=== PATIENT | female | born 1940 | race Caucasian/White ===

== ENCOUNTER → 2024-01-17 14:25 | Outpatient (BNVA) | payer MEDICARE, OTHER, SELFPAY | PROVIDERS: Family Provider Surgery; Visit Provider Nurse Practitioner | DX: M19.011 Primary osteoarthritis, right shoulder (principal); R29.898 Other symptoms and signs involving the musculoskeletal system | CPT/HCPCS: 73030; 99204 ==

== ENCOUNTER → 2024-01-26 15:19 | Outpatient (BNVA) | payer MEDICARE, OTHER, SELFPAY | PROVIDERS: Family Provider Surgery; Referring Provider Nurse Practitioner Family; Visit Provider Nurse Practitioner | DX: M25.562 Pain in left knee (principal) | CPT/HCPCS: 36415; 80053; 81001; 85025 ==

== ENCOUNTER → 2024-02-07 11:40 | Outpatient (BNVA) | payer MEDICARE, OTHER, SELFPAY | PROVIDERS: Family Provider Surgery; PCP Family Medicine; Visit Provider Family Medicine | DX: Z01.818 Encounter for other preprocedural examination (principal); I49.8 Other specified cardiac arrhythmias; I44.5 Left posterior fascicular block | CPT/HCPCS: 81003; 87086; 93005 ==

== ENCOUNTER 2024-02-14 13:00 | Outpatient (CLI) | payer MEDICARE, OTHER, SELFPAY ==
--- NOTE | 2024-02-14 13:30 | IR_ITS ---
WS: [id number] SHOULDER ARTHROGRAM RIGHT Fluoroscopic guided right shoulder arthrogram CLINICAL INFORMATION: right shoulder pain and weakness. COMPARISON: None. PROCEDURE: The procedure including risks, benefits and complications were discussed with the patient, who agreed to proceed. Using sterile technique, the patient was prepped and draped in the usual ster ile fashion. After 1% lidocaine injection using fluoroscopic guidance, a 22-gauge spinal needle was a dvanced into the glenohumeral joint. Approximately 13 ml of a solution containing 20 cc Omnipaque 240 and 5 cc ml 1% lidocaine was administered. No immediate complications. FLUOROSCOPY TIME: 1min [id number] # of spot films: 3 IR/IR arthrogram shoulderRT [id number] IMPRESSION: Uncomplicated fluoroscopic-guided right shoulder arthrogram. CT to follow.
[2024-02-14] MEDS: iohexol 240 mg/mL 50 mL Btl INTRA-ARTI (15:02)
== END 2024-02-14 13:01 | disposition home or self-care (01) ==
LOC: RAD 13:01
PROVIDERS: Family Provider Surgery; PCP Family Medicine; Visit Provider Nurse Practitioner
DX: M19.011 Primary osteoarthritis, right shoulder (principal); R29.898 Other symptoms and signs involving the musculoskeletal system; M17.12 Unilateral primary osteoarthritis, left knee; M85.88 Other specified disorders of bone density and structure, other site
CPT/HCPCS: 23350; 77002

== ENCOUNTER 2024-02-14 13:00 | Outpatient (CLI) | payer MEDICARE, OTHER, SELFPAY ==
--- NOTE | 2024-02-14 13:10 | CT_ITS ---
WS: [id number] CT RIGHT shoulder arthrogram TECHNIQUE: CT RIGHT shoulder arthrogram with coronal and sagittal reformatted images. CLINICAL INFORMATION: right shoulder pain and weakness. COMPARISON: None. DLP: 319.[address] scans at [facility] use at least one of these dose optimization techniques: automated e xposure control; mA and/or kV adjustment per patient size (includes targeted exams where dose is matc hed to clinical indication); or iterative reconstruction. FINDINGS: Advanced degenerative arthritis AC joint with narrowing of the subacromial space. High-grad e full-thickness tear of the supraspinatus with tendon retraction to the glenohumeral joint. Contrast extends into the subacromial subdeltoid bursa. Chronic thinning of the infraspinatus with horizontal partial-thickness split tear. Small tear at the infraspinatus insertion. Teres minor appears intact. Subscapularis tendon appears intact. Chronic appearing tear of the intra- articular biceps tendon with a tiny biceps tendon remnant in the bicipital groove. Advanced degenerat lori narrowing of the glenohumeral articulation. A few tiny noncalcified micronodules RIGHT lung. Partially visualized coronary calcification. Aortic calcification. Hypertrophic changes thoracic spine. CT/CT shoulder RT w con [id number] IMPRESSION: 1. Moderate to advanced degenerative arthritis AC joint with narrowing of the subacromial space. 2. High-grade full-thickness tear of the supraspinatus with retraction to the level of the glenohumeral joint. 3. Partial-thickness horizontal split tear involving the infraspinatus which a ppears intact distally with a small insertional tear. 4. Subscapularis and teres minor appear intact. 5. Chronic appearing tear of the biceps tendon with tiny biceps tendon remnant in the bicipital groove. 6. Tiny intra-articular biceps tendon. 7. Advanced degenerative narrowing of the glenohumeral articulation.
--- NOTE | 2024-02-14 14:00 | CT_ITS ---
WS: [id number] CT LEFT knee, noncontrast HISTORY: M17.12 - Unilateral primary osteoarthritis, left knee TECHNIQUE: Protocol for [facility] total knee replacement has been obtained. This includes axial imaging th rough the LEFT hip, LEFT knee and LEFT ankle. DLP: 870.19 mGy.cm COMPARISON: None available. Pelvis: Mild osteopenia. No acute fractures or displacements. Atherosclerotic plaque in the iliac art eries. LEFT knee: Mild to moderate tricompartment osteoarthritis. Marginal osteophytes. Degenerative air in the medial compartment. Chondrocalcinosis. LEFT ankle: Negative. CT/CT knee LT [facility] [id number] IMPRESSION: CT imaging provided for [facility] robotic total knee replacement.
== END 2024-02-14 13:01 | disposition home or self-care (01) ==
LOC: RAD 13:01
PROVIDERS: Family Provider Surgery; PCP Family Medicine; Visit Provider Nurse Practitioner
DX: Z01.818 Encounter for other preprocedural examination (principal); M17.12 Unilateral primary osteoarthritis, left knee; M25.762 Osteophyte, left knee; M75.121 Complete rotator cuff tear or rupture of right shoulder, not specified as traumatic
CPT/HCPCS: 73201; 73700

== ENCOUNTER → 2024-02-16 13:19 | Outpatient (BNVA) | payer MEDICARE, OTHER, SELFPAY | PROVIDERS: Family Provider Surgery; PCP Family Medicine; Visit Provider Nurse Practitioner | DX: M19.011 Primary osteoarthritis, right shoulder (principal); R29.898 Other symptoms and signs involving the musculoskeletal system; R03.0 Elevated blood-pressure reading, without diagnosis of hypertension | CPT/HCPCS: 99214 ==

== ENCOUNTER 2024-02-22 11:48 | Observation (INO) | payer MEDICARE, OTHER, SELFPAY ==
[2024-02-22] VITALS (13 sets, daily range): BP systolic 111–193; BP diastolic 58–98; PULSE 69–94; RESP 14–18; TEMP 36.4–36.7; O2SAT 94–97; BMI 27.3; BMI 29.7
[2024-02-22] MEDS: sodium chloride 0.9% 1,000 ML 30 ML IV (06:40)
[2024-02-22] MEDS: acetaminophen 1,000 MG/100 ML PIGGYBACK 400 MG IV ×3 (06:41→23:28)
[2024-02-22] MEDS: gabapentin 300 mg Capsule PO (06:43)
--- NOTE | 2024-02-22 06:59 | P.HPUD_ITS ---
Surgery/Procedure H&P Update DATE OF PROCEDURE: February 22, 2024 DATE H&P PERFORMED: 02/07/24 H&P UPDATE INFORMATION: I have reviewed H&P completed within last 30 days, I have examined patient prior to procedure, No changes to prior documentation and H&P is in [facility] EMR on date indicated PLANNED PROCEDURE: Operation Date: 02/22/24 07:55 Proposed Procedures p Tc Robot Total Knee Arthroplasty(Left) - Vy Archer MD Related Problem List Diagnoses (1) Primary osteoarthritis of left knee:
--- NOTE | 2024-02-22 07:15 | P.ANESASSM_ITS ---
Pre-Anesthetic Assessment Height/Weight: Height 1.52 m Weight 63.503 kg Temp Pulse Resp BP Pulse Ox O2 Del Method 97.8 F 69 16 193/98 94 Room Air 02/22/24 06:19 02/22/24 06:19 02/22/24 06:19 02/22/24 06:19 02/22/24 06:19 02/22/24 06:19 Operation Date: 02/22/24 07:55 Proposed Procedures p Tc Robot Total Knee Arthroplasty(Left) - Vy Archer MD Familial anesthetic complications: None Was Beta Clay taken within 24 hours: N/A Was Clonidine taken within 24 hours: N/A Last intake: Intake Last Liquid Date 02/21/24 Last Liquid Time 20:00 Last Solid Date 02/21/24 Last Solid Time 13:00 Social Tobacco and No alcohol Exam alert, oriented x 3, clear to auscultation bilaterally and regular rate & rhythm Airway Mallampati: Class I Dentition: false Pulmonary Chronic Obstructive Pulmonary Disease (O2 at night) GI Gastroesophageal Reflux Disease Musc/skel Lumbar surgery - patient educated probable conversion to general is spinal difficult to place or if poor density of block Anesthetic Plan ASA status: 3 Anesthesia: Regional (specify below) Risk of > 500 ml blood loss (7ml/kg in children): Yes, adequate IV access and fluids planned Medications/Allergies Home Medications Medication Instructions Recorded Confirmed Last Taken Type atorvastatin 20 mg tablet 20 mg PO DAILY 01/17/24 02/21/24 02/21/24 History omeprazole 20 mg capsule,delayed 20 mg PO DAILY 01/17/24 02/21/24 02/21/24 History release oxycodone-acetaminophen 5 mg-325 1 tab PO Q4H PRN Pain (Scale Score 01/17/24 02/21/24 02/21/24 History mg tablet 1-3) meloxicam 7.5 mg tablet 7.5 mg PO DAILY #90 tabs 01/18/24 02/21/24 02/20/24 Rx albuterol sulfate 90 mcg/actuation 2 puff inhalation Q4H PRN sob 02/07/24 02/21/24 02/21/24 History aerosol inhaler (Ventolin HFA) ramipril 5 mg capsule 5 mg PO DAILY 02/07/24 02/21/24 02/21/24 History solifenacin 5 mg tablet 5 mg PO DAILY 02/07/24 02/21/24 02/21/24 History standard walker #1 ea 02/16/24 02/16/24 Unknown Rx Allergies Allergy/AdvReac Type Severity Reaction Status Date / Time celecoxib [From Celebrex] Allergy Unknown Verified 02/22/24 06:00 [facility] Anesthesia Medical History Primary osteoarthritis of left knee Weakness of right shoulder Primary osteoarthritis, right shoulder Social History Smoking and tobacco/nicotine status: current every day tobacco/nicotine user Data Anesthesia Cardiac Studies: No Data to Display
--- NOTE | 2024-02-22 07:20 | ANES.PROC ---
Anesthesia Procedures Procedure/Date: 02/22/24 Nerve Block ^: Nerve Block 1: Main Anesthesia: spinal anesthesia block Time Out Performed: Yes Consent: requested by attending/covering physician, from patient, from other, risks and benefits reviewed and patient agrees to proceed Nerve block location: adductor canal (L) Anesthesia monitors applied: pulse oximetry, EKG and BP cuff Nerve block position: supine Anesthetic Used: ropivicaine 0.5% (30 ml) and with decadron (4 mg) Ultrasound used to: recognize landmarks Nerve Stimulator Used?: No Interscalene/Femoral BLK: 4 stimuplex 21 g needle used for position and inplane approach, visualize local anesthetic spread and no vascular puncture identified Injection: neg aspiration of heme Patient Tolerated Procedure: well Complications: none
[2024-02-22] MEDS: ceFAZolin 2,000 mg SDV 2000 MG IVP ×3 (08:18→23:27)
[2024-02-22] MEDS: tranexamic acid 1,000 mg/10mL SDV 1000 MG IV (08:45)
[2024-02-22] MEDS: BUPivacaine 0.5% INJ 30 mL INJECTION (09:17)
[2024-02-22] MEDS: ceFAZolin 1,000 mg SDV 2000 MG IRRIGATION (09:17)
[2024-02-22] MEDS: BUPivacaine liposome 13.3 mg/mL SDV 20 mL 266 MG INFILTRATI (09:17)
[2024-02-22] MEDS: vancomycin 1,000 MG SDV 1000 MG XX (09:18)
--- NOTE | 2024-02-22 11:48 | XR_ITS ---
WS: [id number] Exam: XR knee LT 3V* [id number] Date/Time of Exam: 02/22/2024 11:48 AM Reason For Exam: S/P LEFT TKA -- PACU images. LEFT total knee prosthesis in place in excellent position. Postoperative changes in the adjacent soft tissues. XR/XR knee LT 1-2V [id number] IMPRESSION: 1. LEFT total knee arthroplasty in excellent position.
--- NOTE | 2024-02-22 11:59 | PM.OP ---
Operative Report Date of procedure: February 22, 2024 Pre-op diagnosis: Severe degenerative osteoarthritis of the left knee with slight flexion contracture Post-op diagnosis: Severe degenerative osteoarthritis of the left knee with slight flexion contracture Post-op findings: Severe degenerative osteoarthritis of the left knee with slight flexion contracture and complete denudement of cartilage Procedure done: Left total knee arthroplasty with Tc guidance Implants: The [employer] total knee system with a size 3 triathlon beaded cruciate retaining femur left, a triathlon titanium tibial component size 3 beaded, a triathlon X3 tibial bearing CS insert size 3 X 9 mm and a beaded triathlon titanium asymmetric patella size 32 x 10 mm Specimens removed/disposition: Bone, disposed of Pathology: None Surgeon: Vy Archer MD Metal Sponge Making Machine Operator: Mandie Rodriguez Metal Sponge Making Machine Operator: Nurse practitioner, who services were required for exposure, retraction, and closure Anesthesia: General (Intubated secondary to multiple prior back surgeries, ASA 3) Estimated blood loss (mL): 250 Tourniquet time (min): 0 (Not utilized) IV fluids (mL): 1,500 Urine output (mL): 250 Complications: None Findings: Severe degenerative osteoarthritis with large osteophytes and sclerotic bone Condition: stable Disposition: PACU (Then discharged to floor under observation for postoperative rehabilitation and pain management) Brief History: This 84-year-old woman presented with complaints of left knee pain. She noted that she has pain if she overused her leg, and at night, she had locking of her knee if she held it in 1 position. She has been trying to keep it moving. She had the pain for couple years. She had a steroid injection without relief. She has stiffness and deep aching late at night and early in the morning, and after discussion, the patient wished to proceed with operative intervention in the form of left total knee arthroplasty. Consents were signed and questions were answered at that time. Procedure: The patient was brought to the operating theater, and after undergoing general intubated anesthesia secondary to multiple prior back surgeries, with supplemental adductor canal block, ASA 3, the left lower extremity was prepped with Dura-Prep and draped in usual fashion following placement of a tourniquet high on the leg. The tourniquet was not elevated throughout the case. The leg was then draped free.? A surgical pause was performed, and at the time of the surgical pause, we confirmed the site and side of surgery. Additionally, we confirmed the appropriate and timely administration of preoperative antibiotics, Ancef 2 g.? The availability of equipment was confirmed, and the patient's identity was verbalized as well. Following the surgical pause, an incision was made centering over the patella continuing proximally and distally as necessary to allow access to the knee joint. Dissection continued through skin and soft tissues using a scalpel. Hemostasis was obtained using electrocautery. The skin incision was followed by a median parapatellar arthrotomy. The leg was extended and the patella was able to be displaced laterally.? Appropriate arrays and markers were placed in appropriate position for use of the Tc.? Preoperative planning had been accomplished and was discussed in detail with the [facility] apprenticeship training representative.? Intraoperative mapping of the femur and tibia was accomplished after the arrays were placed.? Internal markers were also placed.? Once we had accomplished the Tc mapping, we began the appropriate resections for placement of the prosthesis.? The plan was for a cruciate retaining right total knee arthroplasty. Once appropriate mapping had been accomplished retraction was established using manual retraction by surgical technicians and also the Tc leg positioner and retractors.? The knee was evaluated.? There was significant osteoarthritic change as well as flexion contracture with valgus deformity.? Appropriate bone resection was accomplished using the Tc.? The femur was sized to a size 3.? Following femoral cuts, attention was directed to the tibia.? Osteophytes were removed prior to this portion of the procedure.? We had performed a medial release at the beginning of the procedure to allow for placement of the array.? Proximal tibia was evaluated, and it was felt that appropriate size for the tibia was a size 3.? Tray was noted to fit nicely with good coverage.? Rim fit was accomplished with the size 3. A trial reduction was accomplished after osteophytes have been removed as well as the medial and lateral menisci.? We had removed the anterior cruciate ligament at the beginning of the case and preserved the posterior cruciate ligament.? Trial reduction was accomplished with a size 3 femoral cruciate retaining component, a size 3 tibial tray and a size 3 CS tibial bearing insert which was 9 mm.? There was tightness in flexion in particular as well as in extension, and an additional 1.5 mm was removed from the proximal tibia. This allowed better balancing of the knee. Alignment was felt to be appropriate as well.? Trial components were removed after the femur had been drilled.? Prior to removal of the tibial tray which had been pinned in position with appropriate rotation as determined by the Tc plan, we broached the tibia.? Subsequently, the 4 drill holes were made for the prosthetic component.? All trial components were removed, and the wound was irrigated.? Plans were made for insertion of the prosthetic components.? Prior to this, the patella was manually prepared.? After resection of the articular surface with the jigging system, it was measured and measured a 32 mm patella.? We resected approximately 10 mm of patella.? Patellar height was restored with the patellar component. Once again, the wound was irrigated.? The Tritanium tibia was impacted into position.? The beaded femur was then impacted into position in a cementless fashion. The CS tibial insert was placed prior to placement of the femoral component. The patella was pressed into position with a patellar clamp.? Exparel was injected about the components deep and superficially.? The knee was then copiously irrigated with betadine and saline and suctioned dry. Attention was then directed to closure. Closure was accomplished with 0 Vicryl in the fascial tissues.? The suture line of 0 Vicryl was supplemented with strata fix, #1, with a running stitch from proximal to distal and a second running stitch from distal to proximal.? This was followed by Surgiflo and vancomycin powder.? Following this, a 2-0 Monocryl strata fix was used in the subcutaneous tissues, and the skin was closed with 3-0 Strata fix.? Care was taken to assure an excellent subcutaneous as well as skin closure.? A sterile dressing was then placed consisting of Dermabond Prineo, OpSite, ABD, sterile soft roll, and an Reji wrap including over the foot. The patient was returned the Recovery Room in a satisfactory condition. X-rays were obtained and reviewed there.? The patient will be discharged to the floor for postoperative rehabilitation and pain management. Related Problem List Diagnoses (1) Primary osteoarthritis of left knee:
--- NOTE | 2024-02-22 12:25 | ANE.PACU2 ---
Inpatient post-anesthesia follow up: Airway intact: Yes Vital signs: Temperature 97.7 F Pulse Rate 90 Respiratory Rate 17 Blood Pressure 125/58 Pulse Oximetry 97 Oxygen Delivery Me thod Nasal Cannula Oxygen Flow Rate 3 Fraction of Inspir ed Oxygen Hydration adequate: Yes Nausea and vomiting: No Pain level: 1 Mental status: Baseline
[2024-02-22] MEDS: tranexamic acid 1,000 MG/100 ML PREMIX 600 MG IV (16:35)
[2024-02-22] MEDS: iron polysaccharide complex 150 mg Capsule PO (16:36)
[2024-02-22] MEDS: chlorhexidine gluconate 0.12% Btl 473 mL 30 ML MUCOUS MEM (20:17)
[2024-02-23] VITALS (7 sets, daily range): BP systolic 110–153; BP diastolic 45–74; PULSE 62–91; RESP 16–22; TEMP 36.8–36.9; O2SAT 95–96
[2024-02-23 03:41] LABS: Hematocrit 31.8 % (36-47); Lymphocytes # 1.4 10^3/uL (0.8-4.8); Lymphocytes % 17.6 %; Mean Corpuscular Hemoglobin 30.3 pg (27-33); Mean Corpuscular Volume 91.9 fl (85-98); Mean Platelet Volume 9.3 fL (7.4-10.4); Monocytes # 0.9 10^3/uL (0.2-0.9); Monocytes % 11.2 %; Nucleated Red Blood Cells % 0 %; Platelet Count 204 10^3/cmm (157-399); Red Blood Count 3.46 10^6/uL (3.85-5.65); Red Cell Distribution Width 13.7 % (12.1-15.1); White Blood Count 8.03 10^3/uL (3.29-11.43)
[2024-02-23 04:06] LABS: Anion Gap 13.2 (5-19); Blood Urea Nitrogen 16 mg/dL (8-23); Carbon Dioxide 25 mmol/L (22-29); Chloride 105 mmol/L (98-107); Creatinine Clr Calc Pharmacy 46.9706; Glucose 125 mg/dL (65-115); Osmolality Calculated 291 mOsm/kg (285-295); Potassium 4.2 mmol/L (3.5-5.1); Sodium 139 mmol/L (136-145)
[2024-02-23] MEDS: acetaminophen 1,000 MG/100 ML PIGGYBACK 400 MG IV (06:23)
[2024-02-23] MEDS: albuterol 2.5 mg/3 mL Neb INHALATION (07:56)
[2024-02-23] MEDS: iron polysaccharide complex 150 mg Capsule PO (08:59)
[2024-02-23] MEDS: multivitamin therapeutic Tablet 1 TAB PO (09:00)
[2024-02-23] MEDS: lisinopril 20 mg Tablet PO (09:00)
[2024-02-23] MEDS: oxyCODONE 5 mg IR Tab/Cap PO (09:00)
[2024-02-23] MEDS: pantoprazole DR 40 mg Tablet PO (09:00)
[2024-02-23] MEDS: meloxicam 7.5 mg tablet PO (09:00)
[2024-02-23] MEDS: aspirin 325 mg EC Tablet PO (09:00)
[2024-02-23] MEDS: ceFAZolin 2,000 mg SDV 2000 MG IVP (09:02)
[2024-02-23] MEDS: chlorhexidine gluconate 0.12% Btl 473 mL 30 ML MUCOUS MEM (09:08)
[2024-02-23] MEDS: atorvastatin 40 mg Tablet 20 MG PO (09:42)
--- NOTE | 2024-02-23 09:47 | PC.CHAP ---
Pastoral Care Encounter/Spiritual Assessment Type of Contact [] Declined director of corporate communications visit [] Patient/Family/Request visit [] Outpatient visit [] Follow-up visit [] Physician referral [] Code/Alert [x] Routine visit [] Staff referral [] Actively dying [] Patient sleeping [] Family support [] [] Out of room [] Palliative care [] [] Receiving care in room [] Pre-surgical visit [] Trauma [] Long length of stay [] ICU visit [] Other: Relational/Emotional Strength [x] Patient feels connected with others/family/visitors/staff [] Distress [] Loneliness/isolation [] Abandonment Spirituality of Patient [x] Person of Gia [] Attends Confucianist of their Gia [x] Believes in Prayer [] Reads Bible or Alevism materials [] There are Spiritual issues to be addressed Nascar Driver Interventions [x] Prayer [x] Active listening [] Non-anxious presence [x] Spiritual/emotional support [] Crisis/trauma care [] Spiritual counseling [] Bereavement support [] Provided bereavement packet [] Provided Bible/devotional materials [] Provided toy/stuffed animal, coloring book to patient or family member [] Provided Communion [] Anointing/[place] [] Salvation [x] Completed spiritual assessment [] Other: Impact on Illness or Injury [] Angry [] Fearful [] Anxious [] Often cries [] Exhaustion [] Unable to work [] Unable to attend judaism [] Unable to walk/stand [] Unable to read [] Unable to drive [] Unable to eat/drink [] Unable to sleep [] Unable to be with family [] Patient intubated [] Other: Summary Time spent with patient 5 min
[2024-02-23] MEDS: acetaminophen 500 mg Tablet 1000 MG PO (12:25)
--- NOTE | 2024-02-23 13:44 | PM.DCS ---
Discharge Providers Date of Admission: 02/22/24 11:48 Date of Discharge: February 23, 2024 Attending Provider at Admission: Vy Archer MD Attending Provider at Discharge: Vy Archer MD Primary Care Provider: Henna Sousa MD Diagnoses at Discharge Discharge Diagnosis (1) Primary osteoarthritis of left knee: Status: Chronic (2) Status post total left knee replacement not using cement: Status: Acute Permanent problem details: Date of procedure: February 22, 2024 Diagnosis: Severe degenerative osteoarthritis of the left knee with slight flexion contracture Procedure done: Left total knee arthroplasty with Tc guidance Implants: The [employer] total knee system with a size 3 triathlon beaded cruciate retaining femur left, a triathlon titanium tibial component size 3 beaded, a triathlon X3 tibial bearing CS insert size 3 X 9 mm and a beaded triathlon titanium asymmetric patella size 32 x 10 mm Reason for Visit Reason for Visit: M25.569 Brief History: This 84-year-old woman presented with complaints of left knee pain. She noted that she has pain if she overused her leg, and at night, she had locking of her knee if she held it in 1 position. She has been trying to keep it moving. She had the pain for couple years. She had a steroid injection without relief. She has stiffness and deep aching late at night and early in the morning, and after discussion, the patient wished to proceed with operative intervention in the form of left total knee arthroplasty. Consents were signed and questions were answered at that time. Hospital Course Hospital Course This 84-year-old woman was admitted under observation status following same-day surgery for left total knee arthroplasty. The procedure was well-tolerated, and the patient worked well with physical therapy. On the first postoperative day, she worked well with physical therapy. Dressings were removed, and the leg was not ecchymotic or particularly swollen. There was no evidence of DVT. She was neurologically intact. Physical Exam Const: COMMON NORMALS: no acute distress, average body habitus, patient oriented x3, no limitations, healthy appearing, alert and well nourished GENERAL APPEARANCE: cooperative; not anxious and not combative ORIENTATION/CONSCIOUSNESS: Yes awake, Yes oriented to person, Yes oriented to place and Yes oriented to time HENMT: COMMON NORMALS: normocephalic and atraumatic HEAD & SCALP: normocephalic and atraumatic Eye: GENERAL EYE: appearance normal, both eyes and all related structures EYELID: eyelids normal Chest: COMMONS NORMALS: normal inspection of the chest Resp: COMMON NORMALS: normal respiratory effort EFFORT & INSPECTION: Yes able to speak in complete sentences and Yes symmetric chest movement Extremity: LEFT LOWER EXTREMITY: Yes knee joint (Dressing is dry.) Left knee: Yes ROM (Not evaluated) and Yes neurovascular exam (Intact distally) Neuro: COMMON NORMALS: patient oriented x3 SENSORIUM/ORIENTATION: Yes alert, Yes oriented to person, Yes oriented to place and Yes oriented to time SPEECH: speech normal GAIT: Yes Normal gait present Psych: ATTITUDE: Yes calm and Yes engaged ACTIVITY/MOTOR BEHAVIOR: Yes appropriate eye contact ATTENTION/CONCENTRATION: Yes attention grossly intact MEMORY/COGNITION: Yes memory grossly intact Skin: COMMON NORMALS: no rashes or lesions noted and turgor normal; negative for no jaundice GENERAL SKIN EXAM: no rashes or lesions noted, turgor normal and no jaundice Urinary Catheter Management: Alvarez: Cath Placed During This Visit: yes, but has since been removed by the nurse Reason for Continuing Indwelling Catheter: Does Not Meet Criteria Date Urinary Catheter Removed: 02/23/24 Time Urinary Catheter Discontinued: 06:34 Discharge Data Studies Completed and Pending Completed Studies During Hospitalization Category Date Time Status XR knee LT 1-2V [id number] Stat Exams 02/22/24 11:48 Completed Pending at discharge Category Date Time Status Complete Blood Count w/Auto AM LABS Lab 02/24/24 04:00 Ordered Complete Blood Count w/Auto AM LABS Lab 02/25/24 04:00 Ordered Radiology Impressions Knee X-Ray 02/22/24 11:48 IMPRESSION: 1. LEFT total knee arthroplasty in excellent position. Laboratory Results WBC 8.03 10^3/uL (3.29-11.43) 02/23/24 03:19 RBC 3.46 10^6/uL (3.85-5.65) L 02/23/24 03:19 Hgb 10.50 g/dL (11.27-16.99) L 02/23/24 03:19 Hct 31.8 % (36-47) L 02/23/24 03:19 MCV 91.9 fl (85-98) 02/23/24 03:19 MCH 30.3 pg (27-33) 02/23/24 03:19 MCHC 33.0 g/dL (30-55) 02/23/24 03:19 RDW 13.7 % (12.1-15.1) 02/23/24 03:19 Plt Count 204 10^3/cmm (157-399) 02/23/24 03:19 MPV 9.3 fL (7.4-10.4) 02/23/24 03:19 Neut % (Auto) 71.0 % 02/23/24 03:19 Lymph % (Auto) 17.6 % 02/23/24 03:19 [place] % (Auto) 11.2 % 02/23/24 03:19 Eos % (Auto) 0.0 % 02/23/24 03:19 Baso % (Auto) 0.0 % 02/23/24 03:19 Neut # (Auto) 5.70 10^3/uL (1.8-7.7) 02/23/24 03:19 Lymph # (Auto) 1.4 10^3/uL (0.8-4.8) 02/23/24 03:19 [place] # (Auto) 0.9 10^3/uL (0.2-0.9) 02/23/24 03:19 Eos # (Auto) 0.0 10^3/uL (0.0-0.8) 02/23/24 03:19 Baso # (Auto) 0.0 10^3/uL (0.0-0.1) 02/23/24 03:19 Nucleated RBC % (auto) 0 % 02/23/24 03:19 Nucleated RBCs # 0.0 /100WBC 02/23/24 03:19 Sodium 139 mmol/L (136-145) 02/23/24 03:19 Potassium 4.2 mmol/L (3.5-5.1) 02/23/24 03:19 Chloride 105 mmol/L (98-107) 02/23/24 03:19 Carbon Dioxide 25 mmol/L (22-29) 02/23/24 03:19 Anion Gap 13.2 (5-19) 02/23/24 03:19 BUN 16 mg/dL (8-23) 02/23/24 03:19 Creatinine 0.6 mg/dL (0.5-0.9) 02/23/24 03:19 GFR Calculation Not Reportable 02/23/24 03:19 Glucose 125 mg/dL (65-115) H 02/23/24 03:19 Calculated Osmolality 291 mOsm/kg (285-295) 02/23/24 03:19 Calcium 8.0 mg/dL (8.5-10.5) L 02/23/24 03:19 Vitals Last Vital Signs Temp 98.2 F 02/23/24 11:54 Pulse 63 02/23/24 11:54 Resp 17 02/23/24 11:54 BP 110/58 02/23/24 11:54 Pulse Ox 96 02/23/24 11:54 O2 Del Method Nasal Cannula 02/23/24 11:54 O2 Flow Rate 2 02/23/24 08:01 Discharge Plan Discharge Patient Disposition: Home Health Service Condition: Stable Prescriptions: New aspirin 325 mg Tablet,Delayed Release (Dr/Ec) 325 mg PO DAILY 30 Days Qty: 30 0RF oxycodone 5 mg Tablet 5 - 10 mg PO Q4H PRN (Reason: Moderate To Severe Pain) 7 Days Qty: 30 0RF Continued atorvastatin 20 mg tablet 20 mg PO DAILY omeprazole 20 mg capsule,delayed release(DR/EC) 20 mg PO DAILY oxycodone-acetaminophen 5-325 mg tablet 1 tab PO Q4H PRN (Reason: Pain (Scale Score 1-3)) (DME) standard walker See Rx Instructions .Route .MEDSUPPLY Qty: 1 0RF Rx Instructions: As directed. order 99 days ramipril 5 mg capsule 5 mg PO DAILY solifenacin 5 mg tablet 5 mg PO DAILY meloxicam 7.5 mg tablet 7.5 mg PO DAILY Qty: 90 0RF Rx Instructions: Stop or decrease to as needed if stomach pain or increased heart burn occurs. fluticasone propionate 50 mcg/actuation spray,suspension 1 spray INTRANASAL BID budesonide-formoterol 160-4.5 mcg/actuation HFA aerosol inhaler 2 puff INHALATION BID Discharge Orders: Discharge Order (Routine); Ordered 02/23/24 Ordered By: Vy Archer Referrals: [facility] [Outside] Vy Archer MD [Physician] - 03/08/24 1:15 pm Discharge Diet: Advance as tolerated and Usual diet Discharge Activity: Increase activity as tolerated, Limit activity as instructed, Use walker/crutches as instructed and As per PT/OT instructions Patient Instructions: Aspirin (By mouth), Oxycodone, Rapid Release (By mouth), Acute Wound Care (DC), Total Knee Replacement (GEN), Opioid Safety, Post Anesthesia Care Activity Restrictions/Additional Instructions: Ice and elevation to left lower extremity. Gait training, ambulation, and strengthening per physical therapy. Maintain the clear plastic dressing until it is removed in the office or if it lifts and begins to leak, you may remove it at home. Weightbearing as tolerated. Discharge Attestations Time Spent in Discharge Care*: greater than 30 min Specific Discharge Activities: educating patient, documenting/other paperwork and evaluating patient/reviewing data Quality Metrics Clinical Quality Measures [ No reported AMI, CVA or VTE this stay] Coding Level of Care Code Acute Code for Chg Fwd Diagnoses Primary osteoarthritis of left knee M17.12 Status post total left knee replacement not using cement Z96.652
== END 2024-02-23 14:50 | disposition home health service (06) ==
LOC: MEDSURG 11:48
PROVIDERS: Nurse Practitioner; Admitting Provider Specialist; Family Provider Surgery; PCP Family Medicine; Visit Provider Specialist
PROC: 8E0Y0CZ Robotic Assisted Procedure of Lower Extremity, Open Approach (ICD-10-PCS; CPT 27447; principal; 2024-02-22 07:55)
DX: M17.11 Unilateral primary osteoarthritis, right knee (principal); M24.562 Contracture, left knee; J44.9 Chronic obstructive pulmonary disease, unspecified; Z99.81 Dependence on supplemental oxygen; K21.9 Gastro-esophageal reflux disease without esophagitis; F17.200 Nicotine dependence, unspecified, uncomplicated
CPT/HCPCS: 20985; 27447; 36415; 73560; 80048; 85025; 94640; 97110; 97116; 97161; 97165; C1776; C9290; G0378; J0131; J0690; J1100; J1171; J2405; J2704; J2795; J3010; J3370; J3490; J7030; J7613

== ENCOUNTER → 2024-03-08 13:35 | Outpatient (BNVA) | payer MEDICARE, OTHER, SELFPAY | PROVIDERS: Family Provider Surgery; PCP Family Medicine; Visit Provider Nurse Practitioner | DX: Z96.652 Presence of left artificial knee joint (principal) | CPT/HCPCS: 73560; 73565; 99024 ==

== ENCOUNTER → 2024-04-19 12:07 | Outpatient (BNVA) | payer MEDICARE, OTHER, SELFPAY | PROVIDERS: Family Provider Surgery; PCP Family Medicine; Visit Provider Nurse Practitioner | DX: Z96.652 Presence of left artificial knee joint (principal) | CPT/HCPCS: 99024 ==

== ENCOUNTER 2024-08-01 20:10 | Emergency (ER) | payer MEDICARE, OTHER, SELFPAY ==
[2024-08-01 20:11] VITALS: BP 163/77; PULSE 62; RESP 16; TEMP 37.4; O2SAT 93; BMI 27.1
--- NOTE | 2024-08-01 20:36 | ECG_ITS ---
[facility]: 2024-[facility]01 Pat Name: Edith Conway Department: Room: Gender: Female Lung Puller: : 1940 Requested By: Adiel Castellano Order Number: [id number] Reading MD: Measurements Intervals Gray Rate: 63 P: 28 WI: 164 QRS: -37 QRSD: 89 T: 29 QT: 412 QTc: 422 Interpretive Statements SINUS RHYTHM WITH OCCASIONAL VENTRICULAR PREMATURE COMPLEXES LEFT AXIS DEVIATION [QRS AXIS < -30] PATTERN CONSISTENT WITH PULMONARY DISEASE MINIMAL VOLTAGE CRITERIA FOR LVH, CONSIDER NORMAL VARIANT [MEETS CRITERIA IN ONE OF: R(aVL), S(V1), R(V5), R(V5/V6)+S(V1)] POSSIBLE SEPTAL MYOCARDIAL INFARCTION , PROBABLY OLD [30 ms Q WAVE IN V1/V2] INTERPRETATION BASED ON A DEFAULT AGE OF 40 YEARS No previous ECG available for comparison [email or web address] [id number]
--- NOTE | 2024-08-01 20:46 | XRR_ITS ---
PROCEDURE INFORMATION: Exam: XR Chest Exam date and time: 08/01/2024 9:06 PM Age: 84 years old Clinical indication: Other: HTN TECHNIQUE: Imaging protocol: Radiologic exam of the chest. Views: 1 view. COMPARISON: CT shoulder RT w con [id number] 02/14/2024 2:30 PM FINDINGS: Lungs: Calcified granulomata, otherwise clear , symmetrically inflated lungs. Pleural spaces: No pleural effusion. No pneumothorax. Heart/Mediastinum: Cardiac silhouette is normal in size for technique. Calcified mediastinal and hilar lymph nodes. Bones/joints: Lumbar fusion hardware is partly visualized. There is an old healed left clavicular fracture. No acute displaced fractures are evident. XR/XR chest 1V portable [id number] IMPRESSION: No acute cardiopulmonary abnormality.
[2024-08-01 21:43] VITALS: BP 153/73; PULSE 57; RESP 18; O2SAT 93
[2024-08-01 21:45] LABS: Basophils % 0.6 %; Eosinophils # 0.1 10^3/uL (0.0-0.8); Eosinophils % 1.5 %; Hematocrit 43.7 % (36-47); Mean Corpuscular HGB Conc 32.7 g/dL (30-55); Mean Corpuscular Hemoglobin 29.9 pg (27-33); Mean Corpuscular Volume 91.4 fl (85-98); Mean Platelet Volume 11.4 fL (7.4-10.4); Monocytes # 0.4 10^3/uL (0.2-0.9); Monocytes % 5.9 %; Neutrophils # 4.68 10^3/uL (1.8-7.7); Neutrophils % 64.7 %; Nucleated Red Blood Cells % 0 %; Platelet Count 196 10^3/cmm (157-399); Red Blood Count 4.78 10^6/uL (3.85-5.65); White Blood Count 7.23 10^3/uL (3.29-11.43)
[2024-08-01 22:00] VITALS: BP 129/77; PULSE 60; RESP 16; O2SAT 95
--- NOTE | 2024-08-01 22:00 | CTR_ITS ---
PROCEDURE INFORMATION: Exam: CT Head Without Contrast Exam date and time: 08/01/2024 10:09 PM Age: 84 years old Clinical indication: Dizziness TECHNIQUE: Imaging protocol: Computed tomography of the head without contrast. Radiation optimization: All CT scans at this facility use at least one of these dose optimization techniques: automated exposure control; mA and/or kV adjustment per patient size (includes targeted exams where dose is matched to clinical indication); or iterative reconstruction. COMPARISON: No relevant prior studies available. RADIATION DOSE METRICS: Total DLP (mGy-cm): 1213.18 FINDINGS: Brain: No hemorrhage. Unremarkable white matter. No mass effect. Preserved high-white interfaces. Cerebral ventricles: No ventriculomegaly. Paranasal sinuses: There is mucosal thickening in the sphenoid sinuses with sclerotic sinus medina. Mastoid air cells: Visualized mastoid air cells are well aerated. Normal symmetric internal auditory canals. Orbital cavities: Changes of prior cataract surgery noted. Bones: Right worse than left TMJ osteoarthritis. Soft tissues: Unremarkable. CT/CT head wo con* [id number] IMPRESSION: No evidence of acute intracranial hemorrhage, mass effect, or edema. Normal symmetric internal auditory canals.
[2024-08-01 22:06] LABS: Alanine Aminotransferase 10 U/L (0-33); Albumin Level 4.6 g/dL (3.5-5.2); Alkaline Phosphatase 78 U/L (35-105); Anion Gap 15.9 (5-19); Aspartate Amino Transferase 14 U/L (0-32); Blood Urea Nitrogen 16 mg/dL (8-23); Calcium 9.7 mg/dL (8.5-10.5); Carbon Dioxide 25 mmol/L (22-29); Chloride 103 mmol/L (98-107); Creatinine Clr Calc Pharmacy 44.9517; Globulin 2.9 g/dL (1.3-4.6); Glucose 102 mg/dL (65-115); Osmolality Calculated 291 mOsm/kg (285-295); Potassium 3.9 mmol/L (3.5-5.1); Sodium 140 mmol/L (136-145); Total Bilirubin 0.5 mg/dL (0.15-1.2); Total Protein 7.5 g/dL (6.6-8.7)
[2024-08-01 22:21] LABS: Troponin(5th) Baseline 13 ng/L (0-10)
[2024-08-01 22:48] LABS: Bacteria Urine Trace /hpf; Hyaline Casts Urine 0.81 /lpf; WBC Urine 0-5 /hpf (0-5)
[2024-08-01 22:57] LABS: Add Urine Microscopic? YES; Bilirubin Urine Neg (Negative); Blood Urine 2+ (Negative); Glucose Urine UA Norm (Normal); Ketones Urine Negative (Negative); Leukocyte Esterase Urine Negative (Negative); Nitrate Urine Negative (Negative); Protein Urine Neg (Negative); Urine Appearance Clear (CLEAR); Urine Color Yellow (Yellow); Urobilinogen Urine Neg (Negative); pH Urine 6.5 (5-7)
[2024-08-01 23:11] VITALS: BP 144/74; PULSE 72; RESP 18; O2SAT 91
--- NOTE | 2024-08-02 00:31 | W.ED.DIZZY ---
HPI - Dizziness General: Chief Complaint: Dizziness Stated Complaint: high bp Time Seen by Provider: 08/01/24 21:38 Source: patient Mode of arrival: EMS Limitations: no limitations History of Present Illness: HPI Narrative: Patient is an 84-year-old female with past medical history of hypertension and COPD who presents to the emergency department complaining of dizziness onset this afternoon. States that she felt suddenly dizzy, took her blood pressure noted it was extremely high at 200 systolic. Notes that she took it multiple times and it read the same. With triage blood pressure noted to be 163/77. Patient notes that she felt so dizzy that when she stood up felt like she was going to topple over. She did not have any chest pain or shortness of breath associated with this, states that she is only taking ramipril for her blood pressure at this time. No recent medication changes. Denies any cardiac history, she does use oxygen at night as needed for her COPD. Patient at this time stating she is ready to go home as she is feeling better. Blood pressure mildly elevated at time of exam, rest of her vitals within normal limits. She also notes a history of vestibular issues. MD elicited complaint: dizziness Pertinent past history: BPPV Onset (ago): hour(s) Timing: gradual onset Description: off-balance Context: change in body position History of similar symptoms: Yes Exacerbating factors: change in body position Associated symptoms: Denies chest pain, chills, headache(s), nausea, palpitations or vomiting Associated neuro symptoms: Deny numbness in extremities Related Data Home Medications ?Medication ?Instructions ?Recorded ?Confirmed omeprazole 20 mg capsule,delayed 20 mg PO DAILY 01/17/24 04/19/24 release ramipril 5 mg capsule 5 mg PO DAILY 02/07/24 04/19/24 solifenacin 5 mg tablet 5 mg PO DAILY 02/07/24 04/19/24 budesonide-formoterol HFA 160 2 puff inhalation BID 02/23/24 04/19/24 mcg-4.5 mcg/actuation aerosol inhaler Previous Rx's ?Medication ?Instructions ?Recorded standard walker #1 ea 02/16/24 atorvastatin 20 mg tablet 20 mg PO DAILY #90 tabs 03/20/24 meloxicam 7.5 mg tablet 7.5 mg PO DAILY #90 tabs 04/07/24 oxycodone-acetaminophen 5 mg-325 1 tab PO BID PRN pain 30 days #60 06/26/25 mg tablet tabs Allergies Allergy/AdvReac Type Severity Reaction Status Date / Time celecoxib (From Celebrex) Allergy Unknown Verified 04/19/24 13:22 Review of Systems General: Reports: 10 or more systems reviewed and unremarkable except in HPI and below Const: Denies: fever(s), chills or fatigue Eyes: Denies: change in vision ENMT: Denies: throat pain, ear or mastoid pain or nasal discharge Card: Reports: other (HTN); Denies: chest pain, palpitations, swelling of feet/ankles or lightheadedness Resp: Denies: dyspnea, productive cough or wheezing GI: Denies: abdominal pain, nausea, vomiting, diarrhea or constipation : Denies: flank pain, difficulty voiding, dysuria or urinary frequency Musc: Denies: neck pain, back pain or joint pain Skin/Breast: Denies: rash Neuro: Reports: dizziness; Denies: headache(s), numbness in extremities or weakness in extremities PFSH ED PFSH: Medical History DDD (degenerative disc disease), cervical DDD (degenerative disc disease), lumbosacral Advanced COPD Pain management contract signed Generalized osteoarthritis of multiple sites Hypertension, essential GERD without esophagitis Hyperlipemia Urinary incontinence Encounter for chronic pain management Oxygen dependent Nicotine dependence, cigarettes, with other nicotine-induced disorders Chronic back pain COPD (chronic obstructive pulmonary disease) Primary osteoarthritis of left knee Weakness of right shoulder Primary osteoarthritis, right shoulder Surgical History Hx of bilateral cataract extraction History of back surgery X 4; has rods both sides Hx of fracture of clavicle had surgery after fx; left Hx of nasal septoplasty Hx of cholecystectomy History of partial colectomy diverticulosis; had 3 surgeries for ruptured diverticulitis 1996 History of carpal tunnel surgery bilateral Hx of total knee arthroplasty Hx of arthroscopy of right knee Family History Father Lung cancer Mother No problems noted. 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 Physical Exam Const: COMMON NORMALS: no acute distress, patient oriented x3 and no limitations GENERAL APPEARANCE: cooperative, comfortable and well developed ORIENTATION/CONSCIOUSNESS: Yes awake, Yes oriented to person, Yes oriented to place and Yes oriented to time HENMT: COMMON NORMALS: normocephalic, atraumatic and hearing grossly normal bilaterally HEAD & SCALP: normocephalic and atraumatic Eye: COMMON NORMALS: Equal, round and reactive pupils present, EOMs intact bilaterally and conjunctivae normal CONJUNCTIVA: Yes conjunctivae normal PUPIL: Yes Equal, round and reactive pupils present Neck/C-Spine: COMMON NORMALS: full ROM, supple and no JVD Resp: COMMON NORMALS: normal respiratory effort, No retractions, No use of accessory muscles and clear to auscultation bilaterally AUSCULTATION: clear to auscultation bilaterally Cardio: COMMON NORMALS: no JVD, regular rate, regular rhythm, No clicks present (Cardio), No murmurs present (Cardio) and No rub (Cardio) RATE: regular rate RHYTHM: regular rhythm GI: COMMON NORMALS: Normal to inspection, nondistended, normoactive bowel sounds present, Soft to palpation and non-tender AUSCULTATION: Yes normoactive bowel sounds PALPATION: Yes Soft to palpation RECTAL EXAM: deferred Extremity: COMMON NORMALS: normal to inspection, full ROM and capillary refill normal Neuro: COMMON NORMALS: patient oriented x3, CN's II-XII intact bilaterally, moves all extremities, no focal motor deficits and no sensory deficits noted SENSORIUM/ORIENTATION: Yes oriented to person, Yes oriented to place and Yes oriented to time Psych: COMMON NORMALS: mental status grossly normal and Normal thought process present THOUGHT PROCESS: Normal thought process present Skin: COMMON NORMALS: no rashes or lesions noted GENERAL SKIN EXAM: no rashes or lesions noted Course Vital Signs: Vital signs: Vital Signs Temperature 99.3 F 08/01/24 20:11 Pulse Rate 72 08/01/24 23:11 Respiratory Rate 18 08/01/24 23:11 Blood Pressure 144/74 08/01/24 23:11 Pulse Oximetry 91 08/01/24 23:11 Oxygen Delivery Me thod Room Air 08/01/24 22:00 MDM - Dizziness Medical Decision Making Patient presented with dizziness associated with elevated blood pressures. Takes ramipril for blood pressure. At time of exam blood pressure noted to be 150 systolic, she states this normally is where she is. She had no dizziness at time of exam. She was requesting to go home when I first examined her as she was feeling better. We checked her lab work, this was all unremarkable which included unremarkable troponin and EKG. Her head CT did not show any concerning findings for her dizziness and her chest x-ray was unremarkable. I believe dizziness was associated to her blood pressure and thus encouraged her to follow-up with her regular doctor, of which she states she has follow-up in a couple of days. She will discuss blood pressure medications there and did tell her to return in the meantime if her dizziness returns or she starts having any chest pain or shortness of breath. She agrees with this plan and is discharged in stable condition. Lab Data 08/01/24 21:17 08/01/24 21:17 Radiology Impressions Chest X-Ray 08/01/24 20:46 IMPRESSION: No acute cardiopulmonary abnormality. Head CT 08/01/24 22:00 IMPRESSION: No evidence of acute intracranial hemorrhage, mass effect, or edema. Normal symmetric internal auditory canals. Laboratory Results WBC 7.23 10^3/uL (3.29-11.43) 08/01/24 21:17 RBC 4.78 10^6/uL (3.85-5.65) 08/01/24 21:17 Hgb 14.30 g/dL (11.27-16.99) 08/01/24 21:17 Hct 43.7 % (36-47) 08/01/24 21:17 MCV 91.4 fl (85-98) 08/01/24 21:17 MCH 29.9 pg (27-33) 08/01/24 21:17 MCHC 32.7 g/dL (30-55) 08/01/24 21:17 RDW 14.0 % (12.1-15.1) 08/01/24 21:17 Plt Count 196 10^3/cmm (157-399) 08/01/24 21:17 MPV 11.4 fL (7.4-10.4) H 08/01/24 21:17 Neut % (Auto) 64.7 % 08/01/24 21:17 Lymph % (Auto) 27.0 % 08/01/24 21:17 [place] % (Auto) 5.9 % 08/01/24 21:17 Eos % (Auto) 1.5 % 08/01/24 21:17 Baso % (Auto) 0.6 % 08/01/24 21:17 Neut # (Auto) 4.68 10^3/uL (1.8-7.7) 08/01/24 21:17 Lymph # (Auto) 2.0 10^3/uL (0.8-4.8) 08/01/24 21:17 [place] # (Auto) 0.4 10^3/uL (0.2-0.9) 08/01/24 21:17 Eos # (Auto) 0.1 10^3/uL (0.0-0.8) 08/01/24 21:17 Baso # (Auto) 0.0 10^3/uL (0.0-0.1) 08/01/24 21:17 Nucleated RBC % (auto) 0 % 08/01/24 21:17 Nucleated RBCs # 0.0 /100WBC 08/01/24 21:17 Sodium 140 mmol/L (136-145) 08/01/24 21:17 Potassium 3.9 mmol/L (3.5-5.1) 08/01/24 21:17 Chloride 103 mmol/L (98-107) 08/01/24 21:17 Carbon Dioxide 25 mmol/L (22-29) 08/01/24 21:17 Anion Gap 15.9 (5-19) 08/01/24 21:17 BUN 16 mg/dL (8-23) 08/01/24 21:17 Creatinine 0.6 mg/dL (0.5-0.9) 08/01/24 21:17 GFR Calculation Not Reportable 08/01/24 21:17 Glucose 102 mg/dL (65-115) 08/01/24 21:17 Calculated Osmolality 291 mOsm/kg (285-295) 08/01/24 21:17 Calcium 9.7 mg/dL (8.5-10.5) 08/01/24 21:17 Total Bilirubin 0.5 mg/dL (0.15-1.2) 08/01/24 21:17 AST 14 U/L (0-32) 08/01/24 21:17 ALT 10 U/L (0-33) 08/01/24 21:17 Alkaline Phosphatase 78 U/L (35-105) 08/01/24 21:17 Troponin T Baseline 13 ng/L (0-10) H 08/01/24 21:17 Total Protein 7.5 g/dL (6.6-8.7) 08/01/24 21:17 Albumin 4.6 g/dL (3.5-5.2) 08/01/24 21:17 Globulin 2.9 g/dL (1.3-4.6) 08/01/24 21:17 Urine Color Yellow (Yellow) 08/01/24 22:35 Urine Appearance Clear (CLEAR) 08/01/24 22:35 Urine pH 6.5 (5-7) 08/01/24 22:35 Ur Specific [place] 1.010 (1.005-1.030) 08/01/24 22:35 Urine Protein Neg (Negative) 08/01/24 22:35 Urine Glucose (UA) Norm (Normal) 08/01/24 22:35 Urine Ketones Negative (Negative) 08/01/24 22:35 Urine Blood 2+ (Negative) H 08/01/24 22:35 Urine Nitrate Negative (Negative) 08/01/24 22:35 Urine Bilirubin Neg (Negative) 08/01/24 22:35 Urine Urobilinogen Neg mg/dL (Negative) 08/01/24 22:35 Ur Leukocyte Esterase Negative (Negative) 08/01/24 22:35 Urine RBC 6-10 /hpf (0-2) 08/01/24 22:35 Urine WBC 0-5 /hpf (0-5) 08/01/24 22:35 Ur Squamous Epith Cells 11-20 /hpf (0-5) H 08/01/24 22:35 Amorphous Sediment Not Reportable 08/01/24 22:35 Urine Bacteria Trace /hpf (NONE) 08/01/24 22:35 Hyaline Casts 0.81 /lpf 08/01/24 22:35 All radiology interpretation(s) finalized by discharge Discharge Plan Discharge Patient Disposition: Home Clinical Impression: Hypertension, essential, Dizziness Condition: Stable Prescriptions: No Action omeprazole 20 mg capsule,delayed release(DR/EC) 20 mg PO DAILY (DME) standard walker See Rx Instructions .Route .MEDSUPPLY Qty: 1 0RF Rx Instructions: As directed. order 99 days atorvastatin 20 mg tablet 20 mg PO DAILY Qty: 90 3RF ramipril 5 mg capsule 5 mg PO DAILY solifenacin 5 mg tablet 5 mg PO DAILY meloxicam 7.5 mg tablet 7.5 mg PO DAILY Qty: 90 3RF Rx Instructions: Stop or decrease to as needed if stomach pain or increased heart burn occurs. oxycodone-acetaminophen 5-325 mg tablet 1 tab PO BID PRN (Reason: pain) 30 Days Qty: 60 0RF Rx Instructions: chronic pain budesonide-formoterol 160-4.5 mcg/actuation HFA aerosol inhaler 2 puff INHALATION BID Discharge Orders: Discharge ED (Routine); Ordered 08/01/24 Ordered By: Shad Huff Referrals: Henna Sousa MD [Primary Care Provider] - Patient Instructions: Hypertension (ED) Activity Restrictions/Additional Instructions: Please follow-up with your regular doctor to discuss your medications. Return with any further issues with your blood pressure, chest pain, or any other concerns. Make sure that you are drinking plenty of fluids. Print Language: Nigerian Coding Level of Care Code ED [employer] S[employer] Dist[employer] for [employer]
== END 2024-08-01 23:11 | disposition home or self-care (01) ==
PROVIDERS: Emergency Medicine; Emergency Provider Physician Assistant; PCP Family Medicine
DX: I10 Essential (primary) hypertension (principal); R42 Dizziness and giddiness; F17.210 Nicotine dependence, cigarettes, uncomplicated; J44.9 Chronic obstructive pulmonary disease, unspecified; E78.5 Hyperlipidemia, unspecified
CPT/HCPCS: 36415; 70450; 71045; 80053; 81001; 84484; 85025; 93005; 99285